=== PATIENT | female | born 1985 | race Caucasian/White ===

== ENCOUNTER 2017-01-31 01:33 | Inpatient (IN) | payer BC ==
[2017-01-31] MEDS ORDERED: OXYTOCIN/RINGERS LACTATE 1,000 ML IV PRN (01:40)
[2017-01-31] MEDS ORDERED: EPSOM SALT 454 GM TP PRN (01:40)
[2017-01-31] MEDS ORDERED: TERBUTALINE SULFATE 1 MG/ML VIAL IV PRN (01:40)
[2017-01-31] MEDS ORDERED: LR 1,000 ML IV PRN (01:40)
[2017-01-31] MEDS ORDERED: OLIVE OIL 118 ML BTL MISC PRN (01:40)
[2017-01-31] MEDS ORDERED: NALOXONE HCL 0.4 MG/ML INJ IVP PRN (03:53)
[2017-01-31] MEDS ORDERED: ONDANSETRON 4 MG/2 ML VIAL IVP PRN (03:53)
[2017-01-31] MEDS ORDERED: PHENYLEPHRINE HCL 100 MCG/ML SYR IVP PRN (03:53)
[2017-01-31] MEDS ORDERED: METOCLOPRAMIDE 10 MG/2 ML VIAL IVP PRN (03:53)
--- NOTE | 2017-01-31 03:58 | PREANESOB ---
Obstetric Pre-Anesthesia Info - General Info Proposed Procedure: cse NPO Start Time: 00:00 : 2 Para: 1 - Info Status: Full Term Monitors: External FHR Baseline (bpm): 130 FHR Pattern: Reassuring - Labor Status Cervical Dilation per last OB SVE: 2 Amniotic Fluid Color: Meconium Stained-Light PIH: No Magnesium Sulfate in Use: No Indications for Labor Analgesia: Pain Control Labor Epidural: Proposed Anesthesia Allergies/Adverse Reactions: Allergy/AdvReac Type Severity Reaction Status Date / Time No Known Allergies Allergy Unverified 01/31/17 01:39 Visit Medications: Generic Name Dose Route Start Last Admin Trade Name Freq PRN Reason Stop Dose Admin Diphenhydramine HCl 25 - 50 mg 01/31/17 03:53 Benadryl Injection IVP 07/30/17 03:52 Q6HRS PRN Itching Lactated Ringer's 1,000 mls @ 0 mls/hr 01/31/17 01:40 Lr IV 07/30/17 01:39 PRN PRN SEE PROTOCOL CONDITIONS Protocol Per Protocol Oxytocin/Lactated Ringer's 1,000 mls @ 150 mls/hr 01/31/17 01:40 Pitocin 20 Units/Lr (Premix) IV PRN PRN Post- bleeding Fentanyl/Bupivacaine HCl 100 mls @ 0 mls/hr 01/31/17 04:00 Fentanyl/Bupivacaine/Ns 2 Mcg/Ml 0.1% (Premix EP 02/10/17 03:59 CONT DENEEN Protocol As Directed Lactated Ringer's 500 mls @ 0 mls/hr 01/31/17 04:00 Lr IV 07/30/17 03:59 CONT DENEEN As Directed Ibuprofen 600 mg 01/31/17 01:40 Motrin PO 07/30/17 01:39 Q6HRS PRN post , inflammation Magnesium Sulfate 454 gm 01/31/17 01:40 Epsom Salt TP 07/30/17 01:39 Q1H PRN perineal discomfort Metoclopramide HCl 20 mg 01/31/17 03:53 Reglan Injection IVP 07/30/17 03:52 Q6HRS PRN Nausea/Vomiting, Can't Take PO Naloxone HCl 0.4 mg 01/31/17 03:53 Narcan IVP 07/30/17 03:52 PRN PRN Respiratory depression [place] Oil 118 ml 07/10/17 01:40 Sweet Oil MISC 07/30/17 01:39 ONCE PRN preneal massage Ondansetron HCl 4 mg 01/31/17 03:53 Zofran IVP 07/30/17 03:52 Q4HRS PRN Nausea/Vomiting, Can't Take PO Phenylephrine HCl 100 mcg 01/31/17 03:53 Neosynephrine IVP 07/30/17 03:52 .Q2M PRN Hypotension Terbutaline Sulfate 0.25 mg 01/31/17 01:40 Brethine IV 07/30/17 01:39 ONCE PRN Tachysystole - Social History Substance Use/Abuse: Denies (former smoker) - Focused Exam Height/Weight (Nursing): Height 167.64 cm Weight 68.946 kg Respiratory: chest non-tender Cardiovascular: normal peripheral pulses ASA Status: II Labs: 01/31/17 02:30 Patient ABO/Rh O POSITIVE 01/31/17 02:30 pending, will wait for results - Plan Consent Signed and on Chart: Yes Patient/Guardian Understands and Agrees to Plan: Yes
[2017-01-31] MEDS ORDERED: fentaNYL 2MCG/ML/BUP 0.1% RTU 100 ML EP SCH (04:00)
[2017-01-31] MEDS ORDERED: LR 500 ML IV SCH (04:00)
[2017-01-31 04:08] LABS: % IMMATURE GRANULYOCYTES 0.4 % (0.0-1.1); ABSOLUTE IMMATURE GRANULOCYTES 0.05 10^3/uL (0.00-0.10); ADD DIFF? NO; ADD MORPH? NO; ADD SCAN? NO; ATYPICAL LYMPHOCYTE FLAG 0 (0-99); FRAGMENT RBC FLAG 0 (0-99); HEMATOCRIT 35.6 % (38.0-47.0); HEMOGLOBIN 12.4 g/dL (12.6-16.3); LEFT SHIFT FLG 0 (0-99); LIPEMIA HEMOLYSIS FLAG 90 (0-99); MEAN CELL HEMOGLOBIN 29.2 pg (27.9-34.1); MEAN CELL HEMOGLOBIN CONCENTR. 34.8 g/dL (32.4-36.7); MEAN PLATELET VOLUME 12.2 fL (8.7-11.7); PLATELET CLUMPS FLAG 0 (0-99); PLATELET COUNT 179 10^3/uL (150-400); RED BLOOD CELL COUNT 4.24 10^6/uL (4.18-5.33); RED CELL DISTRIBUTION WIDTH 14.6 % (11.5-15.2)
[2017-01-31] MEDS ORDERED: fentaNYL 2MCG/ML/BUP 0.1% RTU 100 ML BAG EP ONE (04:14)
[2017-01-31] MEDS ORDERED: BUPIVACAINE 0.25% 30 ML SDV ONE (04:14)
[2017-01-31] MEDS ORDERED: PHENYLEPHRINE HCL 100 MCG/ML SYR ONE (04:15)
--- NOTE | 2017-01-31 05:42 | GHP ---
[f rep st] PREOP HISTORY AND PHYSICAL DATE OF ADMISSION: 01/31/2017 ADMITTING DIAGNOSIS: Intrauterine at 40 and 4/7 weeks' gestation in spontaneous labor wit h spontaneous rupture of membranes. HISTORY OF PRESENT ILLNESS: Patient is a 32-year-old, 2, para 1-0-0-1 with a last menstrual period of 04/21/2016, and EDC of 01/27/2017 confirmed by an 8-week ultrasound. She has had good pr enatal care at [facility] since registration at 8 weeks. Her risk factors includ e positive BRCA mutation, and she has had a status post bilateral mastectomy. She also had a histor y of a LEEP and then a term delivery. She had other than that no significant risk factors, and she has progressed to 40 and 4. Late in the evening on the , patient began having irregular contractions, had spontaneous rupture of fluids for light meconium, and strong labor contractions. When she was initially admitted she was 2 cm dilated with strong contractions. Patient desired an epidural for pain control. She had an epidural, had a deceleration immediately after the epid ural which is positional and resolved, and currently her cervical exam is 5 cm, 90%, and -1. heart tones are reactive and category 1. PAST OBSTETRICAL HISTORY: In 2012 the patient had a viable male, 8 pounds 3 ounces, vaginal deliver y without complications, and this is her 2nd . PAST GYNECOLOGICAL HISTORY: She had a normal menstrual triad, menarche at age 11, interval every 28 days, length 5-7 days. Last menstrual period was 04/21/2016. She had a history of abnormal Paps, a nd had a LEEP at age 16. Normal Paps have been since, and she has used OCPs in the past for c ontrol. PAST MEDICAL HISTORY: She is positive for a BRCA mutation, was diagnosed at age 29. Her maternal g randmother had breast cancer at less than age 50, and paternal aunt had breast cancer less than age 50, and her father had breast cancer, and has a positive mutation which is why she was checked. PAST SURGICAL HISTORY: The only surgery she has had is a mastectomy. ALLERGIES: She has no known drug allergies. MEDICATIONS: Include vitamins and DHA. LABORATORY DATA: She is O positive. Antibody negative. RPR nonreactive. Rubella immune. Hepatit is negative. HIV negative. Cystic fibrosis, SMA, fragile X negative. She had a low TSH in her 1st trimester and it improved later in . Pap normal. Gonorrhea and chlamydia normal. Verifi normal. 1-hour GTT 99. GBS is negative. SOCIAL HISTORY: She is . She lives with her and her son. She works as a business a nalyst. She denies tobacco, alcohol, and drug use. FAMILY HISTORY: Significant as above. PHYSICAL EXAMINATION: Currently she is afebrile. Vital signs are stable. heart tones are in the 140s, reactive, moderate variability, category 1. She is leonardo every 2-3 minutes. Curre nt cervical exam is 590, - 1, and she is ruptured for light meconium. ASSESSMENT AND PLAN: 32-year-old 2, para 1-0-0-1 at 40 and 4/7 weeks' gestation in active l abor with spontaneous rupture of the membranes for light meconium. Patient will have expectant labo r management. status is reassuring. /[id number]/MODL
[2017-01-31] MEDS ORDERED: TERBUTALINE SULFATE 1 MG/ML VIAL ONE (06:41)
[2017-01-31] MEDS ORDERED: OLIVE OIL 118 ML BTL ONE (06:41)
[2017-01-31] MEDS ORDERED: LIDOCAINE 1% 300 MG/30 ML SDV ONE (06:41)
[2017-01-31] MEDS ORDERED: AMMONIA AROMATIC 1 EACH AMP IH ONE (06:41)
[2017-01-31] MEDS ORDERED: MISOPROSTOL 200 MCG TAB ONE (06:42)
[2017-01-31] MEDS ORDERED: OXYTOCIN 10 UNIT/ML VIAL ONE (06:42)
[2017-01-31] MEDS ORDERED: ACETAMINOPHEN 325 MG TAB PO PRN (07:11)
[2017-01-31] MEDS ORDERED: SIMETHICONE 80 MG TAB CHEW PO PRN (07:11)
[2017-01-31] MEDS ORDERED: HYDROCORTISONE 0.5% CREAM TP PRN (07:11)
[2017-01-31] MEDS ORDERED: HYDROCODONE/APAP 5/325 TAB PO PRN (07:11)
--- NOTE | 2017-01-31 07:11 | OBDEL ---
Info Type: Vaginal GBS+: No Indications for Delivery: Spontaneous Labor, SROM Vaginal Delivery - Labor and Delivery Onset of Contractions Date: 01/30/17 Onset of Contractions Time: 22:30 Onset of Contractions Type: Spontaneous Rupture of Membranes Date: 01/30/17 Rupture of Membranes Time: 23:30 Rupture of Membranes Type: Spontaneous Amniotic Fluid Color: Meconium Stained Dilation Complete Date: 01/31/17 Dilation Complete Time: 06:26 Placenta Delivery Date: 01/31/17 Placenta Delivery Time: 06:49 Total Hours of Labor: 8 Laceration: Other (Specify) (left periurethral) Repair: 4-0, Vicryl Vaginal Sponge Count Correct: Yes Vaginal Needle Count Correct: Yes Vaginal Sweep Performed: No EBL: 300 Delivery Events: Other (Specify) (body cord x 1) - Medications Labor Augmentation/Induction Methods Used: None [place] Data [facility] Delivery Date: 01/31/17 Delivery Time: 06:44 XIN: 01/27/17 Gestational Age: 40 week(s) and 4 day(s) Sex of Infant: Male Score (1 Min): 8 Score (5 Min): 9 ICD10 Worksheet Patient Problems: Problems Problem Status Onset Onset (spontaneous) of labor after 37 completed weeks of gestation but before 39 completed weeks gestation, with delivery by (planned) section Acute - ICD10 Problem Qualifiers (1) Onset (spontaneous) of labor after 37 completed weeks of gestation but before 39 completed weeks gestation, with delivery by (planned) section
[2017-01-31] MEDS: IBUPROFEN 600 MG TAB PO PRN ×3 (07:52→20:57)
[2017-01-31] MEDS: IRON POLYSAC/IRON HEME 28 MG TAB PO SCH (14:45)
[2017-01-31] MEDS: DOCUSATE SODIUM 100 MG CAP PO PRN (20:57)
[2017-01-31 21:09] VITALS: RESP 16; O2SAT 95
[2017-02-01] MEDS: IBUPROFEN 600 MG TAB PO PRN ×2 (03:15→09:42)
[2017-02-01 08:51] VITALS: BP 104/69; PULSE 74; TEMP 98
--- NOTE | 2017-02-01 09:41 | OBPP ---
Progress Note Assessment/Plan: Assessment: ppd# 1 s/p bottle feeding secondary to bilateral mastectomy anemia Plan: discharge plan 02/01/17 09:39 Subjective: patient is doing well. pain is well controlled. normal lochia. bottle feeding. denies headache and changes in vision. ready to go home Objective: 02/01/17 03:00 Patient ABO/Rh O POSITIVE 01/31/17 02:30 Temp Pulse Resp BP Pulse Ox 36.6 C 74 16 104/69 95 02/01/17 08:00 02/01/17 08:00 02/01/17 08:00 02/01/17 08:00 02/01/17 08:00 Uterine Position/Fundal Height: Umbilicus -2 Uterine Tone: Firm Physical Exam - Physical Exam General Appearance: WD/WN, alert, no apparent distress Respiratory: chest non-tender, lungs clear, normal breath sounds Cardiac/Chest: normal peripheral pulses, regular rate, rhythm Abdomen: normal bowel sounds, hypoactive bowel sounds, non-tender Extremities: normal range of motion, non-tender, normal inspection, normal capillary refill Skin: normal color, warm/dry Neuro/Psych: no motor/sensory deficits, alert, normal mood/affect, oriented x 3
[2017-02-01] MEDS: IRON POLYSAC/IRON HEME 28 MG TAB PO SCH (09:42)
[2017-02-01] MEDS: DOCUSATE SODIUM 100 MG CAP PO PRN (09:42)
--- NOTE | 2017-02-01 09:44 | OBGCSDC ---
General Delivery Information - General Info : 2 Para: 2 Delivery Physician/CNM: Sujey Loyola Admission Date: 01/31/17 Labs: Patient ABO/Rh O POSITIVE 01/31/17 02:30 Hct 32.5 % (38.0-47.0) L 02/01/17 03:00 Vaginal - Diagnosis Labor: Spontaneous Rupture of Membranes Type: Spontaneous Amniotic Fluid Color: Meconium Stained Laceration: Other (Specify) (left periurethral) Repair: 4-0, Vicryl Delivery Events: Other (Specify) (body cord x 1) - Operations/Procedures L&D Analgesia/Anesthesia Type: Epidural - Hospital Course Antepartum: hx leep followed by term delivery. BRCA positive. S/P bilateral mastectomy. uncomplicated Intrapartum: spontaneous rupture of membranes. arrived in active labor. epidural. labor. : uncomplicated post course. bottle feeding due to mastectomy. - Delivery L&D Analgesia/Anesthesia Type: Epidural Data [facility] Delivery Date: 01/31/17 Delivery Time: 06:44 XIN: 01/27/17 Gestational Age: 40 week(s) and 5 day(s) Sex of Infant: Male Weight (gm): 0 g Score (1 Min): 8 Score (5 Min): 9 Discharge Information - Discharge Information Discharge Medications: Iron Condition: Good Instruction/Follow Up: Four Weeks, Six Weeks Discharge Physician/CNM: Gabby De La Torre
== END 2017-02-01 13:24 | disposition home or self-care (01) | DRG 775 ==
LOC: FLD 01:33 → OBSVTOIN 01:40 → FOB 09:54
PROVIDERS: ADMIT Obstetrics & Gynecology; ATTEND Obstetrics & Gynecology
PROC: 10E0XZZ Delivery of Products of Conception, External Approach (ICD-10-PCS; principal; 2017-01-31)
PROC: 0UQMXZZ Repair Vulva, External Approach (ICD-10-PCS; principal; 2017-01-31)
DX: O69.82X0 Labor and delivery complicated by other cord entanglement, without compression, not applicable or unspecified (principal); Z37.0 Single live birth; Z3A.40 40 weeks gestation of pregnancy; O71.82 Other specified trauma to perineum and vulva; Z90.13 Acquired absence of bilateral breasts and nipples
CPT/HCPCS: J2370; J2590; J3105

== ENCOUNTER → 2017-04-21 | Outpatient (CLI) | payer BC | LOC: CIMAGING 13:53 | PROVIDERS: ATTEND Advanced Practice Midwife | DX: N64.59 Other signs and symptoms in breast (principal); Z90.13 Acquired absence of bilateral breasts and nipples; Z85.3 Personal history of malignant neoplasm of breast | CPT/HCPCS: 76641-PO ==